=== PATIENT | female | born 1985 | race Native Hawaiian/Other Pacific Islander ===

== ENCOUNTER 2019-04-01 12:18 | Emergency (ER) | payer OTHER ==
[~2019-04-01] VITALS: Ht 167.6 cm; Wt 78.5 kg
[2019-04-01 12:30] VITALS: TEMP 97.5
[2019-04-01 14:38] VITALS: BP 120/76
== END 2019-04-01 14:39 | disposition home or self-care (01) ==
LOC: ED 12:18
DX: J11.1 Influenza due to unidentified influenza virus with other respiratory manifestations (principal)
CPT/HCPCS: 87502; 87651; 99283

== ENCOUNTER 2019-07-02 16:03 | Emergency (ER) | payer OTHER ==
[~2019-07-02] VITALS: Ht 167.6 cm; Wt 77.1 kg
[2019-07-02 16:35] VITALS: BP 141/84; TEMP 97.5
== END 2019-07-02 17:57 | disposition home or self-care (01) ==
LOC: ED 16:03
DX: S60.221A Contusion of right hand, initial encounter (principal); W23.0XXA Caught, crushed, jammed, or pinched between moving objects, initial encounter; Y92.511 Restaurant or cafe as the place of occurrence of the external cause
CPT/HCPCS: 99283

== ENCOUNTER 2020-10-26 12:46 | Emergency (ER) | payer OTHER | END 2020-10-26 14:05 | disposition home or self-care (01) | LOC: ED 12:46 | PROC: 3E1CX8Z Irrigation of Eye using Irrigating Substance (ICD-10-PCS; principal; 2020-10-26) | DX: T15.92XA Foreign body on external eye, part unspecified, left eye, initial encounter (principal); T15.91XA Foreign body on external eye, part unspecified, right eye, initial encounter; Y93.89 Activity, other specified; Y92.89 Other specified places as the place of occurrence of the external cause; Y99.0 Civilian activity done for income or pay | CPT/HCPCS: 99282 ==

== ENCOUNTER 2022-02-07 13:02 | Emergency (ER) | payer OTHER ==
[~2022-02-07] VITALS: Ht 167.6 cm; Wt 78.0 kg
[2022-02-07 14:21] LABS: PLATELET COUNT 233 K/uL (152-353)
[2022-02-07 15:34] VITALS: BP 118/72; TEMP 98.3
== END 2022-02-07 15:34 | disposition home or self-care (01) ==
LOC: ED 13:02
PROVIDERS: Family Medicine
DX: J06.9 Acute upper respiratory infection, unspecified (principal); J02.9 Acute pharyngitis, unspecified
CPT/HCPCS: 85027; 87502; 87651; 99283

== ENCOUNTER 2022-07-25 18:56 | Emergency (ER) | payer BC ==
[~2022-07-25] VITALS: Ht 167.6 cm; Wt 77.1 kg
[2022-07-25 20:37] VITALS: BP 136/80; TEMP 98.5
== END 2022-07-25 20:37 | disposition home or self-care (01) ==
LOC: ED 18:56
DX: J20.9 Acute bronchitis, unspecified (principal)
CPT/HCPCS: 87651; 94664; 99282; J2930

== ENCOUNTER 2022-08-25 18:50 | Emergency (ER) | payer BC ==
[~2022-08-25] VITALS: Ht 167.6 cm; Wt 83.0 kg
[2022-08-25 18:56] VITALS: BP 91/56; TEMP 98.5
== END 2022-08-25 19:49 | disposition home or self-care (01) ==
LOC: ED 18:50
DX: T63.331A Toxic effect of venom of brown recluse spider, accidental (unintentional), initial encounter (principal); Y93.89 Activity, other specified; Y92.099 Unspecified place in other non-institutional residence as the place of occurrence of the external cause
CPT/HCPCS: 99281